=== PATIENT | male | born 1955 | race Caucasian/White ===

== ENCOUNTER 2023-01-27 11:44 | Inpatient (IN) | payer OTHER, BC, MEDICAID ==
[~2023-01-27] VITALS: Ht 182.9 cm; Wt 87.0 kg
[2023-01-27 12:30] LABS: EOSINOPHILS # (AUTO) 0.3 X10'3 (0-0.9); HEMOGLOBIN 14.1 g/dl (14.0-17.9); PLATELET COUNT 193 X10'3 (140-440); WHITE BLOOD COUNT 6.4 X10'3 (4.5-11.0)
[2023-01-27 12:32] LABS: BASOPHILS % (AUTO) 0.6 % (0-1); EOSINOPHILS % (AUTO) 4.9 % (0-6); HEMATOCRIT 41.1 % (42.0-52.0); LYMPHOCYTES # (AUTO) 1.2 X10'3 (1.1-4.8); LYMPHOCYTES % (AUTO) 18.3 % (21-51); MEAN CORPUSCULAR HEMOGLOBIN 30.4 PG (27.0-31.0); MEAN CORPUSCULAR HGB CONC 34.2 g/dL (33.0-36.5); MEAN CORPUSCULAR VOLUME 88.8 FL (78-98); MEAN PLATELET VOLUME 7.4 FL (7.4-10.4); MONOCYTES # (AUTO) 0.7 X10'3 (0-0.9); MONOCYTES % (AUTO) 10.4 % (2-12); NEUTROPHILS # (AUTO) 4.2 X10'3 (1.8-7.7); NEUTROPHILS % (AUTO) 65.8 % (42-75); RED BLOOD COUNT 4.63 X10'6 (4.70-6.10)
[2023-01-27 12:41] LABS: APTT 25 SECONDS (22-32); INR 1.1 INR; PROTHROMBIN TIME 11.4 SECONDS (9.0-12.0)
[2023-01-27] MEDS ORDERED: aspirin 81mg tab.chew PO ONE (12:50)
[2023-01-27] MEDS ORDERED: normal saline 1000ML IV soln IVB ONE (12:50)
[2023-01-27 12:55] LABS: ALANINE AMINOTRANSFERASE 16 U/L (12-78); ALBUMIN 3.5 G/DL (3.4-5.0); ALBUMIN/GLOBULIN RATIO 1.2 (1.1-1.5); ALKALINE PHOSPHATASE 63 IU/L (46-116); ANION GAP 5 (8-16); ASPARTATE AMINO TRANSFERASE 17 U/L (10-37); BILIRUBIN,TOTAL 0.5 MG/DL (0.1-1.0); BLOOD UREA NITROGEN 9 MG/DL (7-18); BUN/CREATININE RATIO 7.5 (10.0-20.0); CALCIUM 9.2 MG/DL (8.5-10.1); CHLORIDE 104 MMOL/L (99-107); GLUCOSE 106 MG/DL (70-104); POTASSIUM 4.1 MMOL/L (3.5-5.1); SODIUM 138 MMOL/L (135-145); TOTAL CARBON DIOXIDE 28.8 MMOL/L (24-32); TOTAL PROTEIN 6.4 G/DL (6.4-8.2); eCRCL 65 ML/MIN; eGFR 60 ML/MIN
[2023-01-27 13:24] LABS: MAGNESIUM 1.9 MG/DL (1.5-2.4); PHOSPHORUS 3.2 MG/DL (2.3-4.5); PRO BRAIN NATRIURETIC PEPTIDE 165 PG/ML (0-125)
[2023-01-27 13:37] LABS: C-REACTIVE PROTEIN < 0.05 MG/DL (0.0-0.5)
[2023-01-27 13:46] LABS: ETHANOL < 10 MG/DL (<10)
[2023-01-27 13:51] LABS: BILIRUBIN,URINE NEGATIVE (Neg); CLARITY,URINE CLEAR (Clear); COLOR,URINE YELLOW (Yellow); GLUCOSE, URINE NEGATIVE (Neg); KETONES,URINE NEGATIVE (Neg); LEUKOCYTE ESTERASE ,URINE NEGATIVE (Neg); NITRITES, URINE NEGATIVE (Neg); OCCULT BLOOD,URINE NEGATIVE (Neg); PROTEIN,URINE NEGATIVE (Neg); UROBILINOGEN,URINE 0.2 E.U/dL (0.2-1.0)
[2023-01-27 13:54] LABS: UA COLLECTION TYPE CLN CATCH MIDSTREAM
[2023-01-27 13:59] LABS: URINE AMPHETAMINE SCREEN NEGATIVE (Neg); URINE BARBITUATE SCREEN NEGATIVE (Neg); URINE BENZODIAZEPINES SCREEN NEGATIVE (Neg); URINE CANNABINOID SCREEN NEGATIVE (Neg); URINE COCAINE SCREEN NEGATIVE (Neg); URINE METHADONE SCREEN NEGATIVE (Neg); URINE OPIATE SCREEN NEGATIVE (Neg); URINE PHENCYCLIDINE SCREEN NEGATIVE (Neg)
[2023-01-27] MEDS ORDERED: ondansetron/PF 4mg/2ml inj IV PRN (15:00)
[2023-01-27] MEDS ORDERED: morphine 2 MG/ML inj. syringe IV PRN ×2 (15:00)
[2023-01-27] MEDS ORDERED: acetaminophen 325mg tablet PO PRN ×2 (15:00)
[2023-01-27] MEDS ORDERED: magnesium hydroxide 30ml (MOM) UD suspension PO PRN (15:00)
[2023-01-27] MEDS: dextrose 5%-1/2 normal saline 1,000 ML IV SCH (15:00)
[2023-01-27] MEDS ORDERED: mag hydrox/Alum hydrox/simeth 30ml oral suspension PO PRN (15:00)
[2023-01-27] MEDS: docusate sod 100mg capsule PO SCH (20:00)
[2023-01-28] VITALS (7 sets, daily range): BP systolic 125–162; BP diastolic 71–96; PULSE 65–69; RESP 14–18; TEMP 97.7–98.7; O2SAT 94–98
[2023-01-28] MEDS: dextrose 5%-1/2 normal saline 1,000 ML IV SCH ×3 (01:07→21:00)
[2023-01-28] MEDS: docusate sod 100mg capsule PO SCH ×2 (08:00→21:55)
[2023-01-28] MEDS: enoxaparin 40mg/0.4ml syringe SUBCUT SCH (09:31)
[2023-01-28 10:37] LABS: BASOPHILS % (AUTO) 0.4 % (0-1); EOSINOPHILS # (AUTO) 0.2 X10'3 (0-0.9); EOSINOPHILS % (AUTO) 4.1 % (0-6); HEMATOCRIT 42.7 % (42.0-52.0); HEMOGLOBIN 14.5 g/dl (14.0-17.9); LYMPHOCYTES % (AUTO) 17.8 % (21-51); MEAN CORPUSCULAR HEMOGLOBIN 30.3 PG (27.0-31.0); MEAN CORPUSCULAR HGB CONC 33.9 g/dL (33.0-36.5); MEAN CORPUSCULAR VOLUME 89.2 FL (78-98); MEAN PLATELET VOLUME 7.5 FL (7.4-10.4); MONOCYTES # (AUTO) 0.4 X10'3 (0-0.9); MONOCYTES % (AUTO) 7.6 % (2-12); NEUTROPHILS # (AUTO) 3.9 X10'3 (1.8-7.7); NEUTROPHILS % (AUTO) 70.1 % (42-75); PLATELET COUNT 191 X10'3 (140-440); RED BLOOD COUNT 4.79 X10'6 (4.70-6.10); RED CELL DISTRIBUTION WIDTH 13.8 % (11.5-14.5); WHITE BLOOD COUNT 5.6 X10'3 (4.5-11.0)
[2023-01-28 10:47] LABS: ALBUMIN 3.5 G/DL (3.4-5.0); ANION GAP 5 (8-16); BLOOD UREA NITROGEN 7 MG/DL (7-18); BUN/CREATININE RATIO 6.4 (10.0-20.0); CALCIUM 8.9 MG/DL (8.5-10.1); CHLORIDE 102 MMOL/L (99-107); GLUCOSE 146 MG/DL (70-104); POTASSIUM 3.9 MMOL/L (3.5-5.1); SODIUM 138 MMOL/L (135-145); TOTAL CARBON DIOXIDE 30.6 MMOL/L (24-32); eCRCL 71 ML/MIN; eGFR 67 ML/MIN
[2023-01-29 02:00] VITALS: BP 139/94; PULSE 67; RESP 18; TEMP 97.8; O2SAT 96
[2023-01-29 06:00] VITALS: BP 109/62; PULSE 62; RESP 16; TEMP 98.4; O2SAT 99
[2023-01-29 07:57] LABS: BASOPHILS % (AUTO) 0.6 % (0-1); EOSINOPHILS # (AUTO) 0.5 X10'3 (0-0.9); EOSINOPHILS % (AUTO) 6.8 % (0-6); HEMATOCRIT 41.8 % (42.0-52.0); HEMOGLOBIN 14.1 g/dl (14.0-17.9); LYMPHOCYTES # (AUTO) 1.9 X10'3 (1.1-4.8); LYMPHOCYTES % (AUTO) 25.9 % (21-51); MEAN CORPUSCULAR HEMOGLOBIN 29.8 PG (27.0-31.0); MEAN CORPUSCULAR HGB CONC 33.7 g/dL (33.0-36.5); MEAN CORPUSCULAR VOLUME 88.5 FL (78-98); MEAN PLATELET VOLUME 7.6 FL (7.4-10.4); MONOCYTES # (AUTO) 0.9 X10'3 (0-0.9); MONOCYTES % (AUTO) 12.9 % (2-12); NEUTROPHILS # (AUTO) 3.9 X10'3 (1.8-7.7); NEUTROPHILS % (AUTO) 53.8 % (42-75); PLATELET COUNT 190 X10'3 (140-440); RED BLOOD COUNT 4.72 X10'6 (4.70-6.10); RED CELL DISTRIBUTION WIDTH 13.7 % (11.5-14.5); WHITE BLOOD COUNT 7.3 X10'3 (4.5-11.0)
[2023-01-29 08:09] LABS: ALBUMIN 3.2 G/DL (3.4-5.0); ANION GAP 8 (8-16); BLOOD UREA NITROGEN 11 MG/DL (7-18); BUN/CREATININE RATIO 13.6 (10.0-20.0); CALCIUM 8.8 MG/DL (8.5-10.1); CHLORIDE 103 MMOL/L (99-107); CREATININE 0.81 MG/DL (0.60-1.10); GLUCOSE 99 MG/DL (70-104); POTASSIUM 3.8 MMOL/L (3.5-5.1); SODIUM 138 MMOL/L (135-145); TOTAL CARBON DIOXIDE 26.8 MMOL/L (24-32); eCRCL 96 ML/MIN; eGFR > 90 ML/MIN
[2023-01-29] MEDS: docusate sod 100mg capsule PO SCH ×2 (09:22→19:25)
[2023-01-29] MEDS: enoxaparin 40mg/0.4ml syringe SUBCUT SCH (09:23)
[2023-01-29] MEDS: dextrose 5%-1/2 normal saline 1,000 ML IV SCH ×2 (09:27→19:25)
[2023-01-29 10:00] VITALS: BP 109/62; PULSE 62; RESP 16; TEMP 98.5; O2SAT 99
[2023-01-29] MEDS ORDERED: TRAZ-251 PO (12:45)
[2023-01-29] MEDS ORDERED: MEMA10TA PO (12:45)
[2023-01-29] MEDS ORDERED: DILT120C88 PO (12:45)
[2023-01-29] MEDS ORDERED: LISI5TAB22 PO (12:45)
[2023-01-29] MEDS ORDERED: FINA1TAB17 PO (12:45)
[2023-01-29] MEDS ORDERED: CARV3.12 PO (12:45)
[2023-01-29] MEDS ORDERED: RISP2TAB97 PO (12:45)
[2023-01-29] MEDS ORDERED: FLO0.4C PO (12:45)
[2023-01-29] MEDS ORDERED: ATOR40TA14 PO (12:45)
[2023-01-29] MEDS ORDERED: CHOL200012 PO (12:45)
[2023-01-29 18:00] VITALS: BP 129/80; PULSE 65; RESP 15; TEMP 97.7; O2SAT 97
[2023-01-29 20:00] VITALS: RESP 15; O2SAT 97
[2023-01-29 22:00] VITALS: BP 137/91; PULSE 65; RESP 12; TEMP 97.9; O2SAT 97
[2023-01-30 02:00] VITALS: BP 144/74; PULSE 59; RESP 13; TEMP 97.7; O2SAT 99
[2023-01-30] MEDS: dextrose 5%-1/2 normal saline 1,000 ML IV SCH ×2 (03:00→05:53)
[2023-01-30 07:00] VITALS: BP 123/78; PULSE 51; RESP 16; TEMP 98.5; O2SAT 92
[2023-01-30 07:16] LABS: BASOPHILS # (AUTO) 0.1 X10'3 (0-0.2); BASOPHILS % (AUTO) 0.7 % (0-1); EOSINOPHILS # (AUTO) 0.5 X10'3 (0-0.9); EOSINOPHILS % (AUTO) 6.6 % (0-6); HEMATOCRIT 41.4 % (42.0-52.0); LYMPHOCYTES # (AUTO) 1.6 X10'3 (1.1-4.8); LYMPHOCYTES % (AUTO) 20.4 % (21-51); MEAN CORPUSCULAR HEMOGLOBIN 30.1 PG (27.0-31.0); MEAN CORPUSCULAR HGB CONC 33.8 g/dL (33.0-36.5); MEAN PLATELET VOLUME 7.1 FL (7.4-10.4); MONOCYTES % (AUTO) 12.7 % (2-12); NEUTROPHILS # (AUTO) 4.7 X10'3 (1.8-7.7); NEUTROPHILS % (AUTO) 59.6 % (42-75); PLATELET COUNT 183 X10'3 (140-440); RED BLOOD COUNT 4.65 X10'6 (4.70-6.10); RED CELL DISTRIBUTION WIDTH 13.7 % (11.5-14.5); WHITE BLOOD COUNT 7.9 X10'3 (4.5-11.0)
[2023-01-30 07:37] LABS: ANION GAP 6 (8-16); BLOOD UREA NITROGEN 11 MG/DL (7-18); BUN/CREATININE RATIO 13.1 (10.0-20.0); CALCIUM 8.7 MG/DL (8.5-10.1); CHLORIDE 103 MMOL/L (99-107); CREATININE 0.84 MG/DL (0.60-1.10); GLUCOSE 100 MG/DL (70-104); POTASSIUM 3.9 MMOL/L (3.5-5.1); SODIUM 136 MMOL/L (135-145); TOTAL CARBON DIOXIDE 27.5 MMOL/L (24-32); eCRCL 92 ML/MIN; eGFR > 90 ML/MIN
[2023-01-30 08:00] VITALS: RESP 16; O2SAT 92
[2023-01-30] MEDS: enoxaparin 40mg/0.4ml syringe SUBCUT SCH (08:26)
[2023-01-30] MEDS: docusate sod 100mg capsule PO SCH (08:26)
== END 2023-01-30 10:35 | disposition home health service (06) | DRG 71 ==
LOC: ER 11:45 → ED HOLD 15:05 → EDBEDREQ 01-28 05:10 → PCU 3S 01-28 07:12
PROVIDERS: ADMIT Internal Medicine; ATTEND Internal Medicine
PROC: 4A00X4Z Measurement of Central Nervous Electrical Activity, External Approach (ICD-10-PCS; principal; 2023-01-29)
DX: G93.40 Encephalopathy, unspecified (principal); N17.9 Acute kidney failure, unspecified; F20.9 Schizophrenia, unspecified; I10 Essential (primary) hypertension; N40.0 Benign prostatic hyperplasia without lower urinary tract symptoms; E78.5 Hyperlipidemia, unspecified; E86.0 Dehydration; I48.91 Unspecified atrial fibrillation; R62.50 Unspecified lack of expected normal physiological development in childhood; Z86.73 Personal history of transient ischemic attack (TIA), and cerebral infarction without residual deficits
CPT/HCPCS: 36415; 70450; 70551; 71045; 80048; 80053; 80305; 80320; 81003; 82948; 83605; 83735; 83880; 84100; 84484; 85025; 85610; 85651; 85730; 86140; 86885; 86900; 86901; 87040; 87081; 93005; 95816; 97116; 97161; 97530; 99285; A4314; A4349; A5200; G0378; J1650; J7030

== ENCOUNTER 2024-03-31 11:37 | Emergency (ER) | payer OTHER, BC, MEDICAID ==
[~2024-03-31] VITALS: Ht 190.5 cm; Wt 83.2 kg
[~2024-03-31 11:37] MED LIST: ATOR40TA14 PO; CARV3.12 PO; CHOL200012 PO; DILT120C88 PO; FINA1TAB13 PO; FLO0.4C PO; LISI5TAB22 PO; MEMA10TA PO; RISP2TAB97 PO; TRAZ-251 PO
[2024-03-31 11:54] VITALS: BP 107/72; PULSE 54; RESP 18; TEMP 97.1; O2SAT 100
== END 2024-03-31 22:59 | disposition left against medical advice (07) ==
LOC: ER 11:38
DX: I95.9 Hypotension, unspecified (principal); Z53.21 Procedure and treatment not carried out due to patient leaving prior to being seen by health care provider; R07.89 Other chest pain
CPT/HCPCS: 36415; 84484; 93005

== ENCOUNTER 2024-11-12 10:27 | Emergency (ER) | payer OTHER, BC, MEDICAID ==
[~2024-11-12] VITALS: Ht 190.5 cm; Wt 82.1 kg
[~2024-11-12 10:27] MED LIST changes: -FLO0.4C PO; +TAMS-55 PO
[2024-11-12 10:37] VITALS: TEMP 97.9
--- NOTE | 2024-11-12 11:04 | ELECTROCARDIOGRAPH REPORT ---
[facility] Test Date: 2024-11-12 Test Time: 11:02:39 Pat Name: SLADE SPENCER Department: EMERGENCY ROOM Room: Gender: M Permit Coordinator: KH : [id number] Requested By: GROVER INMAN Order Number: [id number] Reading MD: Dr. Nam Baeza Measurements Intervals [place] Rate: 52 P: 0 GA: 0 QRS: -73 QRSD: 107 T: 119 QT: 392 QTc: 365 Interpretive Statements Atrial fibrillation Left anterior fascicular block Anterior infarct, old Nonspecific T abnormalities, lateral leads Baseline wander in lead(s) V4,V5,V6 Electronically Signed On 11-13-2024 6:34:[address] Nam Baeza Please click the below link to view image of tracing.
[2024-11-12 11:20] LABS: BASOPHILS % (AUTO) 0.7 % (0-1); EOSINOPHILS # (AUTO) 0.2 X10'3 (0-0.9); HEMATOCRIT 44.3 % (42.0-52.0); LYMPHOCYTES # (AUTO) 1.3 X10'3 (1.1-4.8); LYMPHOCYTES % (AUTO) 23.4 % (21-51); MEAN CORPUSCULAR HEMOGLOBIN 30.1 PG (27.0-31.0); MEAN CORPUSCULAR VOLUME 88.7 FL (78-98); MEAN PLATELET VOLUME 7.4 FL (7.4-10.4); MONOCYTES # (AUTO) 0.6 X10'3 (0-0.9); MONOCYTES % (AUTO) 11.3 % (2-12); NEUTROPHILS # (AUTO) 3.4 X10'3 (1.8-7.7); NEUTROPHILS % (AUTO) 60.6 % (42-75); PLATELET COUNT 178 X10'3 (140-440); RED BLOOD COUNT 4.99 X10'6 (4.70-6.10); RED CELL DISTRIBUTION WIDTH 13.9 % (11.5-14.5); WHITE BLOOD COUNT 5.6 X10'3 (4.5-11.0)
[2024-11-12] MEDS: normal saline 1000ml 1,000 ML IV ONE (11:24)
[2024-11-12 11:49] LABS: ALBUMIN 3.6 G/DL (3.4-5.0); ANION GAP 11 (8-16); BLOOD UREA NITROGEN 13 MG/DL (7-18); BUN/CREATININE RATIO 10.2 (10.0-20.0); CALCIUM 9.1 MG/DL (8.5-10.1); CHLORIDE 106 MMOL/L (99-107); CREATININE 1.27 MG/DL (0.60-1.10); GLUCOSE 102 MG/DL (70-104); POTASSIUM 4.1 MMOL/L (3.5-5.1); PRO BRAIN NATRIURETIC PEPTIDE 321 PG/ML (0-125); SODIUM 144 MMOL/L (135-145); eCRCL 63 ML/MIN; eGFR 56 ML/MIN
--- NOTE | 2024-11-12 13:57 | Physician Documentation ---
History of Present Illness ~ Chief Complaint: Hypotension Stated Complaint: "LOW STATS" Time Seen by MD: 10:44 OK to notify your PCP?: Yes HPI Patient is here for hypotension. A punch finisher checked his blood pressure and it was little bit low. He is here with his family member I believe he said it has a nephew and he said his uncle might be dehydrated. He has not had any vomiting or diarrhea. Patient is asymptomatic. Medication Reconciliation Allergies: Coded Allergies: No Known Allergies (Unverified , 01/27/23) Scheduled Atorvastatin Calcium (Lipitor), 1 TAB PO DAILY, (Reported) Carvedilol (Coreg), 1 TAB PO Q12H, (Reported) Cholecalciferol (Vitamin D3) (Vitamin D3), 1 CAP PO DAILY, (Reported) Diltiazem Hcl (Cardizem Cd), 120 MG PO DAILY, (Reported) Finasteride (Finasteride), 1 TAB PO DAILY, (Reported) Lisinopril (Lisinopril), 1 TAB PO DAILY, (Reported) Memantine Hcl (Namenda), 0.5 TAB PO Q12H, (Reported) Risperidone (Risperdal), 1 TAB PO BID, (Reported) Tamsulosin Hcl* (Flomax*), 1 CAP PO DAILY, (Reported) Trazodone HCl (Trazodone HCl), 1.5 TAB PO HS, (Reported) Physical Exam Vital Signs: Temperature: 97.9, Source: Temporal, Heart Rate: 61, Respiratory Rate: 16, BP: 155/101, Pulse Oximetry: 93, Weight: 82.100 Oxygen Flow Rate: 0 Physical Exam General: Awake and Alert, no acute distress. HEENT: Conjunctiva pink, Sclera clear, Mucus Membranes moist. Neck: Supple without masses and tenderness. Resp: Unlabored. Lungs clear to auscultation bilaterally. Heart: Regular Rate and rhythm, normal S1 and S2 without murmur, rub or gallop. Abdomen: Soft and non tender no organomegaly Extremities: No cyanosis,clubbing or edema. Skin: Warm and Dry. Neuro: GCS 15; no focal deficits Progress Results/Orders Results/Orders Completed Orders - GROVER INMAN MD Cbc/Diff (11/12/24 10:39) BMP (11/12/24 10:39) PBNP (11/12/24 10:39) Electrocardiogram (11/12/24 ) Hs Troponin I W Calculations (11/12/24 10:59) Normal Saline 1000ml (Sodium Chloride 10 (11/12/24 11:00) Medications Received in ER Medications (Trade) Dose Ordered Sig/Sonny Route PRN Reason Start Time Stop Time Status Last Admin Dose Admin Sodium Chloride 1,000 ml @ 1,000 mls/hr ONCE ONCE IV 11/12/24 11:00 11/12/24 11:59 DC 11/12/24 11:24 1,000 MLS/HR Vital Signs 11/12/24 11/12/24 11/12/24 11/12/24 10:37 13:12 13:15 13:15 Temp 97.9 Pulse 61 61 Resp 18 16 16 15 B/P (MAP) 92/57 155/101 (119) Pulse Ox 97 93 O2 Flow Rate 0 Laboratory Tests Test 11/12/24 10:56 White Blood Count 5.6 Red Blood Count 4.99 Hemoglobin 15.0 Hematocrit 44.3 Mean Corpuscular Volume 88.7 Mean Corpuscular Hemoglobin 30.1 Mean Corpuscular Hemoglobin Concent 34.0 Red Cell Distribution Width 13.9 Platelet Count 178 Mean Platelet Volume 7.4 Neutrophils (%) (Auto) 60.6 Lymphocytes (%) (Auto) 23.4 Monocytes (%) (Auto) 11.3 Eosinophils (%) (Auto) 4.0 Basophils (%) (Auto) 0.7 Neutrophils # (Auto) 3.4 Lymphocytes # (Auto) 1.3 Monocytes # (Auto) 0.6 Eosinophils # (Auto) 0.2 Basophils # (Auto) 0.0 CBC Comment Sodium Level 144 Potassium Level 4.1 Chloride Level 106 Carbon Dioxide Level 27.0 Anion Gap 11 Blood Urea Nitrogen 13 Creatinine 1.27 H Estimated GFR/1.73 m2 56 BUN/Creatinine Ratio 10.2 Glucose Level 102 Calcium Level 9.1 Troponin I High Sensitivity 8 Pro-B-Type Natriuretic Peptide 321 H Albumin 3.6 Chemistry Comments Medical Decision Making Findings EKGs interpreted by me shows a sinus rhythm rate is 52 beats per minute left axis deviation poor R-wave progression that has no ST elevation or depression. Patient is here because a punch finisher took his blood pressure home and it was low. His blood pressure was 92/57 at triage. He was given a L of saline and now he is now hypertensive: 164/96. Patient's labs are all reassuring. This may have been just a little bit of dehydration. He is going to hold his blood pressure m edications today. It can be resumed tomorrow if he is hypertensive. Departure Disposition: HOME / SELF CARE / HOMELESS Impression: Primary Impression: Dehydration Condition: Stable Discharge Instructions: Dehydration, Elderly, [id number] Additional Instructions: To hold his blood pressure medicines today. If he is hypotensive tomorrow and he can restart thing. Make sure he drinks plenty of liquids. He should rechecked with his doctor this week. Returned for hypotension lightheadedness dizziness chest pain vomiting or any concerns. Referrals: NO PRIMARY CARE PROVIDER (PCP) Education Educated: Patient Educated regarding: diagnosis, treatment, prognosis, need for follow up Signature Scribe Signature: no scribe Attestation: no scribe GROVER INMAN MD Nov 12, 2024 13:57
[2024-11-12 14:08] VITALS: BP 163/93; PULSE 52; RESP 16; O2SAT 94
== END 2024-11-12 14:18 | disposition home or self-care (01) ==
LOC: ER 10:28
DX: E86.0 Dehydration (principal)
CPT/HCPCS: 36415; 80048; 83880; 84484; 85025; 93005; 96360; 96361; 99284; J7030; A6590